=== PATIENT | male | born 1975 | race Caucasian/White ===

== ENCOUNTER 2021-11-12 18:10 | Inpatient (IN) | payer OTHER ==
[2021-11-12 19:57] VITALS: BMI 18.8
[2021-11-13] MEDS ORDERED: NICOTINE POLACRILEX 2 MG GUM BUC PRN (01:26)
[2021-11-13] MEDS ORDERED: IBUPROFEN 400 MG TABLET (FP) PO PRN (01:26)
[2021-11-13] MEDS ORDERED: MAGNESIUM CITRATE 300 ML BOTTLE PO PRN (01:26)
[2021-11-13] MEDS ORDERED: BISMUTH SUBSALICYLATE 524 MG/30 ML PO PRN (01:26)
[2021-11-13] MEDS ORDERED: BENZOCAINE/MENTHOL (CHLORASEPTIC ) LOZENGE MM PRN (01:26)
[2021-11-13] MEDS ORDERED: MAGNESIUM HYDROX 2400MG/30ML ORAL SUSPENSION 30 ML CUP PO PRN (01:26)
[2021-11-13] MEDS ORDERED: DICYCLOMINE HCL 10 MG CAPSULE PO PRN (01:26)
[2021-11-13] MEDS ORDERED: LOPERAMIDE HCL 2 MG CAPSULE PO PRN (01:26)
[2021-11-13] MEDS ORDERED: ONDANSETRON *ODT* 4 MG TABLET SL PRN (01:26)
[2021-11-13] MEDS ORDERED: ACETAMINOPHEN 325 MG TABLET (FP) PO PRN (01:26)
[2021-11-13] MEDS ORDERED: MAG HYDROX/AL HYDROX/SIMETH 30 ML UNIT-DOSE CUP PO PRN (01:26)
[2021-11-13] MEDS ORDERED: methaDONE HCL 10 MG TABLET (FOR DETOX USE ONLY) PO ONE (01:32)
[2021-11-13] MEDS ORDERED: methaDONE HCL 10 MG TABLET (FOR DETOX USE ONLY) ONE (05:15)
[2021-11-13] MEDS ORDERED: ESCITALOPRAM OXALATE 20 MG TABLET PO ONE (10:19)
[2021-11-13] MEDS: NICOTINE 14 MG/24 HOURS TOPICAL PATCH TD SCH (10:44)
[2021-11-13] MEDS: PRENATAL VITAMINS W/ FOLIC ACID TABLET (FP) PO SCH (10:44)
[2021-11-13] MEDS: THIAMINE HCL 100 MG TABLET (FP) PO SCH (22:27)
[2021-11-13] MEDS: traZODone HCL 100 MG TABLET (FP) PO SCH (22:28)
[2021-11-13] MEDS: MELATONIN 5 MG TABLETS PO SCH (22:28)
[2021-11-13] MEDS: METHOCARBAMOL 500 MG TABLET PO PRN (22:28)
[2021-11-13] MEDS: ACETAMINOPHEN 325 MG TABLET (FP) PO PRN (22:29)
[2021-11-14] MEDS ORDERED: methaDONE HCL 10 MG TABLET (FOR DETOX USE ONLY) ONE (09:08)
[2021-11-14] MEDS ORDERED: NICOTINE 10 MG CARTRIDGE (INHALER) IH PRN (10:44)
[2021-11-14] MEDS: PRENATAL VITAMINS W/ FOLIC ACID TABLET (FP) PO SCH (10:50)
[2021-11-14] MEDS: ESCITALOPRAM OXALATE 20 MG TABLET PO SCH (10:50)
[2021-11-14] MEDS: NICOTINE 14 MG/24 HOURS TOPICAL PATCH TD SCH (10:50)
[2021-11-14 12:41] LABS: HEMATOCRIT 35.2 % (35.4-49); HEMOGLOBIN 12.4 GM/dL (11.7-16.9); MCH 34.9 pg (25.7-33.7); MCHC 35.3 g/dl (32.0-35.9); MEAN PLT VOLUME 7.5 fl (7.5-11.1); PLATELET COUNT 242 10^3/uL (134-434); RBC 3.56 M/mm3 (4.00-5.60); RDW 12.5 % (11.9-15.9); WHITE BLOOD COUNT 4.9 K/mm3 (4.0-10.0)
[2021-11-14 13:09] LABS: ALBUMIN 3.8 g/dl (3.4-5.0); CREATININE 0.9 mg/dL (0.55-1.3)
[2021-11-14 13:10] LABS: BLOOD UREA NITROGEN 15.9 mg/dL (7-18); CALCIUM 8.6 mg/dL (8.5-10.1)
[2021-11-14 13:11] LABS: TOT PROT 7.2 g/dl (6.4-8.2)
[2021-11-14 13:12] LABS: BILIRUBIN,TOTAL 0.6 mg/dL (0.2-1)
[2021-11-14] MEDS: MELATONIN 5 MG TABLETS PO SCH (22:19)
[2021-11-14] MEDS: THIAMINE HCL 100 MG TABLET (FP) PO SCH (22:19)
[2021-11-14] MEDS: traZODone HCL 100 MG TABLET (FP) PO SCH (22:19)
[2021-11-15] MEDS ORDERED: methaDONE HCL 10 MG TABLET (FOR DETOX USE ONLY) PO ONE (10:00)
[2021-11-15] MEDS: ESCITALOPRAM OXALATE 20 MG TABLET PO SCH (10:12)
[2021-11-15] MEDS: PRENATAL VITAMINS W/ FOLIC ACID TABLET (FP) PO SCH (10:13)
[2021-11-15] MEDS: NICOTINE 14 MG/24 HOURS TOPICAL PATCH TD SCH (10:13)
[2021-11-15] MEDS: METHOCARBAMOL 500 MG TABLET PO PRN (17:32)
[2021-11-15] MEDS: cloNIDine HCL 0.1 MG TABLET PO PRN ×2 (17:32→22:22)
[2021-11-15] MEDS: THIAMINE HCL 100 MG TABLET (FP) PO SCH (22:18)
[2021-11-15] MEDS: traZODone HCL 100 MG TABLET (FP) PO SCH (22:18)
[2021-11-15] MEDS: MELATONIN 5 MG TABLETS PO SCH (22:18)
[2021-11-16] MEDS ORDERED: methaDONE HCL 10 MG TABLET (FOR DETOX USE ONLY) ONE (08:54)
[2021-11-16] MEDS: NICOTINE 14 MG/24 HOURS TOPICAL PATCH TD SCH (10:09)
[2021-11-16] MEDS: ESCITALOPRAM OXALATE 20 MG TABLET PO SCH (10:09)
[2021-11-16] MEDS: PRENATAL VITAMINS W/ FOLIC ACID TABLET (FP) PO SCH (10:10)
[2021-11-16] MEDS: METHOCARBAMOL 500 MG TABLET PO PRN (18:21)
[2021-11-16] MEDS: ACETAMINOPHEN 325 MG TABLET (FP) PO PRN (18:21)
[2021-11-16] MEDS: MELATONIN 5 MG TABLETS PO SCH (23:03)
[2021-11-16] MEDS: THIAMINE HCL 100 MG TABLET (FP) PO SCH (23:03)
[2021-11-16] MEDS: traZODone HCL 100 MG TABLET (FP) PO SCH (23:04)
[2021-11-17] MEDS ORDERED: methaDONE HCL 10 MG TABLET (FOR DETOX USE ONLY) PO ONE (10:00)
[2021-11-17] MEDS: ESCITALOPRAM OXALATE 20 MG TABLET PO SCH (10:36)
[2021-11-17] MEDS: PRENATAL VITAMINS W/ FOLIC ACID TABLET (FP) PO SCH (10:39)
[2021-11-17] MEDS: NICOTINE 14 MG/24 HOURS TOPICAL PATCH TD SCH (11:27)
[2021-11-17] MEDS: traZODone HCL 100 MG TABLET (FP) PO SCH (22:15)
[2021-11-17] MEDS: MELATONIN 5 MG TABLETS PO SCH (22:15)
[2021-11-17] MEDS: THIAMINE HCL 100 MG TABLET (FP) PO SCH (22:15)
[2021-11-17] MEDS: METHOCARBAMOL 500 MG TABLET PO PRN (22:15)
[2021-11-18 09:29] VITALS: BP 91/61; PULSE 86; TEMP 96.6
[2021-11-18] MEDS: ESCITALOPRAM OXALATE 20 MG TABLET PO SCH (09:42)
[2021-11-18] MEDS: PRENATAL VITAMINS W/ FOLIC ACID TABLET (FP) PO SCH (09:42)
[2021-11-18] MEDS: NICOTINE 14 MG/24 HOURS TOPICAL PATCH TD SCH (09:42)
== END 2021-11-18 12:53 | disposition other institution (70) | DRG 773 ==
LOC: YASAS 18:10 → Y6N 11-13 05:28
PROVIDERS: ADMIT Allergy & Immunology; ATTEND Allergy & Immunology
PROC: HZ2ZZZZ Detoxification Services for Substance Abuse Treatment (ICD-10-PCS; principal; 2021-11-13)
DX: F11.23 Opioid dependence with withdrawal (principal); F10.20 Alcohol dependence, uncomplicated; F17.210 Nicotine dependence, cigarettes, uncomplicated; F19.282 Other psychoactive substance dependence with psychoactive substance-induced sleep disorder; F43.10 Post-traumatic stress disorder, unspecified; F41.9 Anxiety disorder, unspecified; G62.9 Polyneuropathy, unspecified; H91.91 Unspecified hearing loss, right ear; H91.01 Ototoxic hearing loss, right ear; Z85.828 Personal history of other malignant neoplasm of skin; Z87.828 Personal history of other (healed) physical injury and trauma; Z88.8 Allergy status to other drugs, medicaments and biological substances
CPT/HCPCS: 36415; 80053; 85027; 86780; 93005; 93010; C9803-CS; J0735; U0003; U0005